=== PATIENT | female | born 2000 | race Two or more races ===

== ENCOUNTER 2022-06-01 14:38 | Emergency (ER) | payer MEDICAID ==
[~2022-06-01] VITALS: Ht 160 cm; Wt 93.0 kg
[2022-06-01 17:11] LABS: Albumin 3.5 g/dL (3.4-5.0); Calcium 8.4 mg/dL (8.5-10.1); Potassium 4.4 mmol/L (3.5-5.1)
[2022-06-01 17:12] LABS: Basophils # (auto) 0.1 10 ^3/uL (0-0.2); Basophils % (auto) 0.7 % (0.0-2.0); Eosinophils # (auto) 0.1 10 ^3/uL (0-0.8); Eosinophils % (auto) 1.5 % (0.0-7.0); Hematocrit 25.8 % (36.0-46.0); Hemoglobin 7.1 g/dL (12.2-16.2); Lymphocytes # (auto) 2.1 10 ^3/uL (0.4-5.4); Lymphocytes % (auto) 24.8 % (10.0-50.0); Mean Corpuscular Hemoglobin 15.7 pg (28.0-32.0); Mean Corpuscular Hgb Conc. 27.5 g/dL (32.0-36.0); Mean Corpuscular Volume 57.1 fL (80.0-100.0); Monocytes # (auto) 0.5 10 ^3/uL (0-1.3); Monocytes % (auto) 5.6 % (0.0-12.0); Neutrophils # (auto) 5.8 10 ^3/uL (1.6-8.6); Neutrophils % (auto) 67.4 % (37.0-80.0); Nucleated Red Blood Cells % 0.1 %; Red Blood Cells 4.52 10^6/uL (4.0-5.20); White Blood Cell 8.6 10^3/uL (4.4-10.8)
[2022-06-01 17:16] LABS: BUN/Creatinine Ratio 10.5; Total Protein 7.5 g/dL (6.4-8.2)
[2022-06-01 17:38] LABS: Urine Bacteria FEW /hpf (None Seen); Urine Blood Negative /uL (Negative); Urine Specific Gravity 1.015 (1.001-1.035); Urine WBC 8 /hpf (0 - 5)
[2022-06-02 00:42] VITALS: BP 105/59
[2022-06-02 00:57] VITALS: BP 114/60
[2022-06-02] MEDS ORDERED: NITR-87 PO (03:06)
[2022-06-02 03:15] VITALS: BP 108/67
[2022-06-02 03:18] VITALS: BP 108/64
== END 2022-06-02 03:28 | disposition home or self-care (01) ==
LOC: ER 14:38
DX: D64.9 Anemia, unspecified (principal); N39.0 Urinary tract infection, site not specified; R42 Dizziness and giddiness
CPT/HCPCS: 36415; 36430; 80053; 81001; 85025; 86850; 86900; 86901; 86920; 99285; P9016